=== PATIENT | female | born 1975 | race Caucasian/White ===

== ENCOUNTER → 2019-04-13 | Outpatient (REF) ==
[~2019-04-13] MED LIST: ABIL1TAB11 PO; ALBU83IN INH; BENA25CA2 PO; CETI10TA PO; CYCL10TA PO; DIPH25CA32 PO; DULE200A IN; HALO1TA PO; INCR1INH IN; NAPR-885 PO; PRAZ2CAP PO; ROPI0.5T PO; SERO50TA PO; ZYRT10CA PO
--- NOTE | 2019-04-13 15:50 | REP ---
REASON: Disability. COMPARISON: 02/27/2016. Three views show no change from the prior exam. There is disc space narrowing at L4-5 status quo. There is partial sacralization of L5 status quo. There are no acute abnormalities. IMPRESSION: No significant change. Electronically Signed by Rafi Lam DO 04/13/2019 05:09 P
== END ==
LOC: M SMT 13:05
PROVIDERS: ATTEND Internal Medicine
DX: Z00.00 Encounter for general adult medical examination without abnormal findings (principal)